=== PATIENT | male | born 1960 | race Caucasian/White ===

== ENCOUNTER → 2020-09-28 14:10 | Outpatient (CLI) | payer BC, SELFPAY ==
--- NOTE | ~2020-09-28 | US_ITS ---
EXAMINATION: US soft tissue chest DATE: 09/28/2020 15:13 INDICATION: Chest wall mass TECHNIQUE: Multiple grayscale and Doppler ultrasound images of the region of concern at the left uppe r quadrant along the margin of the ribs were obtained. COMPARISON: None FINDINGS/IMPRESSION: The palpable abnormality of concern corresponds to a shadowing likely calcified structure. The struct ure appears centered deep to the subcutaneous fat within the chest/abdominal wall and on cine images projects from deep to 3 more superficial tip, likely either the tip of a rib or possibly the xiphoid process. Could consider obtaining a radiograph with a BB marking the lesion for confirmation. Reviewed, dictated and finalized at location A.
== END ==
DX: R22.2 Localized swelling, mass and lump, trunk (principal)
CPT/HCPCS: 76604

== ENCOUNTER 2023-07-24 10:25 | Outpatient (CLI) | payer OTHER, SELFPAY ==
[2023-07-24 18:37] LABS: Hemoglobin 14.6 g/dL (14.0-18.0); Mean Corpuscular HGB Conc 31.7 g/dl (32-36); Mean Corpuscular Volume 94.5 fl (80-100); Mean Platelet Volume 11.1 fl (7.4-10.4); Platelet Count Result 211 k/mm3 (150-375); Red Blood Count 4.87 M/mm3 (4.6-6.20); Red Cell Distribution Width 12.9 % (11.5-14.5); White Blood Count 4.7 K/mm3 (4.5-10.0)
[2023-07-24 18:42] LABS: Alanine Aminotransferase 27 U/L (6-50); Albumin Level 4.4 g/dL (3.5-5.1); Alkaline Phosphatase 88 U/L (38-126); Anion Gap 7 mmol/L (4-12); Aspartate Amino Transferase 40 U/L (17-59); Bilirubin,Total 0.7 mg/dL (0.2-1.3); Blood Urea Nitrogen 19 mg/dL (9-20); Calcium 9.3 mg/dL (8.4-10.2); Carbon Dioxide 29 mmol/L (22-30); Chloride 104 mmol/L (98-107); Cholesterol 185 mg/dL (0-200); Estimated Glomerular Filt Rate > 60; Glucose 76 mg/dL (65-110); HDL Direct 55 mg/dL; Potassium 4.3 mmol/L (3.4-5.0); Sodium 140 mmol/L (137-145); Triglycerides 52 mg/dL (<150)
[2023-07-24 18:51] LABS: Appearance Urine Clear (Clear); Bilirubin Urine Negative (Negative); Blood Urine Negative (Negative); Color Urine Dark Yellow (Yellow); Glucose Urine UA Negative (Negative); Ketones Urine Negative (Negative); Leukocyte Esterase Ur Negative LEU/UL (Negative); Nitrate Urine Negative (Negative); Protein Urine Negative (Negative); Specific Grav Ur 1.014 (1.001-1.035); Urobilinogen Urine 0.2 mg/dL (<2.0)
[2023-07-24 18:54] LABS: Add Urine Microscopic? NO
[2023-07-24 19:02] LABS: LDL Cholesterol Direct 109 mg/dL
[2023-07-24 19:15] LABS: Prostate Specific Antigen 1.4 ng/mL (< OR = 4.0)
== END 2023-07-24 10:26 | disposition home or self-care (01) ==
LOC: ANHGOSHLAB 10:27
PROVIDERS: PCP Family Medicine; Visit Provider Family Medicine
DX: Z00.00 Encounter for general adult medical examination without abnormal findings (principal); Z12.5 Encounter for screening for malignant neoplasm of prostate
CPT/HCPCS: 36415; 80053; 80061; 81003; 84153; 84443; 85027

== ENCOUNTER 2024-07-28 08:07 | Outpatient (CLI) | payer OTHER, SELFPAY ==
--- OUTSIDE RECORDS SUMMARY | 2024-07-28 08:13 | XMS_ITS | Referral Summary ---
Author Organization [facility] Address [address] [place] [id number] Care Team Providers Care Data Entry Operator Name Role Phone Suzie Vigil MD Primary Care Provider Allergies No known active allergies Medications glucosamine-cho ndroitin 250-200 mg tablet Take by mouth Active fexofenadine (SASHA) 180 mg tablet Take 1 tablet (180 mg total) by mouth daily Active fluticasone propionate (FLONASE) 50 mcg/actuation nasal spray Administer 1 spray into each nostril daily Active B complex 87-qmowg-A-biot -zinc [id number] up-fa-wbe-mg tablet Take by mouth Active ALPRAZolam (XANAX) 0.5 mg tablet Bring both tablets to suite 180 day of procedure. 2 tablet 4 Active Active Problems Problem Noted Date Diagnosed Date Varicose veins of leg with pain, left 01/29/2024 Varicose veins of both lower extremities with pa in 08/03/2020 Overview (08/03/2020): Left worse than right Assessment & Plan (09/09/2023 8:55 AM CDT): Left lower extremity CEAP C3 disease. Left lower extremity reflux aquatics manager ordered, pending this he would likely benefit from a GSV ablation and stab phlebectomies. Assessment & Plan (08/12/2022 8:54 PM CDT): Minimally symptomatic. Rec more frequent use of compression socks, elevation. Discussed indications for vascular referral. Assessment & Plan (08/03/2020 10:24 AM CDT): Nearing the point the point should refer to vascular General medical exam 07/28/2019 Assessment & Plan (08/12/2022 9:30 AM CDT): - Depression screen: PHQ Screening PHQ-2 Total Score (If total score is 3 or more points, staff should administer the PHQ-9): 0 PHQ-9 Total Score: 0 - A1c: screen - Lipids: screen - AAA screening: not needed - Colon cancer: last done 10/2019 with hyperplastic polyp, due for f/u in 2029 - Prostate cancer: Benefits and risks discussed. Pt elects to be screened - Lung cancer: not needed - HIV: NR - HCV: NR - Other STI: not neededd - Influenza: rec - Td/Tdap: give today - PPSV23: not needed - PCV13: due at 65 - Shingrix: UTD - COVID: Rec bivalent booster Routine health maintenance objectives discussed including need for healthy diet and physical activity and orders placed for any outstanding screening studies as noted. Physical exam performed as above.Routine annual labs, if needed, have been ordered and will be reviewed with patient when results available. Assessment & Plan (08/06/2021 9:46 PM CDT): - Depression screen: PHQ Screening PHQ-2 Total Score (If total score is 3 or more points, staff should administer the PHQ-9): 0 - A1c: screen - Lipids: screen - AAA screening: not needed - Colon cancer: last done 10/2019 with hyperplastic polyp, due for f/u in 2029 - Prostate cancer: Benefits and risks discussed. Pt elects to be screened - Lung cancer: not needed - HIV: NR - HCV: NR - Other STI: not neededd - Influenza: rec - Td/Tdap he will check - PPSV23: give at 66 - PCV13: not needed - Shingrix: UTD - COVID: Rec booster #2 Routine health maintenance objectives discussed including need for healthy diet and physical activity and orders placed for any outstanding screening studies as noted. Physical exam performed as above.Routine annual labs, if needed, have been ordered and will be reviewed with patient when results available. 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 If no improvement, he will sched with medical certification specialist. COVID-19 07/04/2021 08/06/2021 Hyperplastic polyp of ascending colon 08/06/2020 08/12/2022 Overview (08/06/2020): 4mm removed 10/2019 Dr Sims SIG Immunizations Immunization Administration Dates Next Due Influenza, Quadrivalent, Spl it, Preservative Free, Intramuscular 12/30/2019 Influenza, Trivalent, IM (MDV) 11/26/2020 Tdap 08/12/2022 ZOSTER Recombinant 04/26/2021,12/27/2020 Social History Tobacco Use Types Packs/Day Years Used Date Smoking Tobacco: Never Smokeless Tobacco: Former Chew Quit: 07/28/1983 Tobacco Cessation:Counseling Given: Not Answered Alcohol Use Standard Drinks/Week Comments Yes 0 (1 standard drink = 0.6 oz pur e alcohol) AUDIT-C Answer Date Recorded Q1: How often do you have a drink containing alc ohol? 2-4 times a month 08/12/2022 Q2: How many drinks containi ng alcohol do you have on a typical day when you are drinking? 3 or 4 08/12/2022 Q3: How often do you have si x or more drinks on one occasion? Never 08/12/2022 PHQ-2 Answer Date Recorded PHQ-2 Total Score 0 08/12/2022 Sex and Gender Information Value Date Recorded Sex Assigned at Not on file Legal Sex Male 3:18 AM ELECTRONIC SCALE SUBASSEMBLER Gender Identity Male 09/21/2020 1:56 PM CDT Sexual Orientation Straight 09/21/2020 1: 56 PM CDT Occupation Industry Job Start Date Job End Date retired Not on file Not on file Not on file Last Filed Vital Signs Vital Sign Reading Time Taken Comments Blood Pressure 127/80 03/09/2024 10:23 AM ELECTRONIC SCALE SUBASSEMBLER Pulse 64 03/09/2024 10:23 AM ELECTRONIC SCALE SUBASSEMBLER Temperature 36.3 C (97.3 F) 08/12/2022 9:08 AM CDT Respiratory Rate - - Oxygen Saturation 100% 03/09/2024 10:23 AM ELECTRONIC SCALE SUBASSEMBLER Inhaled Oxygen Concentration - - Weight 78.5 kg (173 lb) 03/09/2024 10:23 AM ELECTRONIC SCALE SUBASSEMBLER Height 190.5 cm (6' 3) 03/09/2024 10:23 AM ELECTRONIC SCALE SUBASSEMBLER Body Mass Index 21.62 03/09/2024 10:23 AM ELECTRONIC SCALE SUBASSEMBLER Plan of Treatment Not on file Procedures Procedure Name Priority Date/Time Associated Diagnosis Comments PSA SCREEN Routine 08/12/2022 9:33 AM CDT General medical exam HM COLONOSCOPY Routine 07/28/2011 from Last 3 Months or Most Recently Relevant to Health Maintenance Results * PSA screen (08/12/2022 9:33 AM CDT) PSA, Total 0.8 0.0 - 4.0 ng/mL [facility] Blood 08/12/2022 9:33 AM CDT 08/12/2022 9:46 AM CDT Suzie Vigil MD LAB BLOOD ORDERABLES F inal Result [address] [id number] * COLONOSCOPY (07/28/2011) Colonoscopy Normal Historical Provider HEALTH MAINTENANCE Final Result from Last 3 Months or Most Recently Relevant to Health Maintenance Insurance [facility] CLAIMS COMMERCIAL GENERIC [facility] CLAIMS Care Teams Data Entry Operator Relationship Specialty Start Date End Date Suzie Vigil MD [address] [place] [address] PCP - General Internal Medicine 08/06/21
--- OUTSIDE RECORDS SUMMARY | 2024-07-28 08:13 | XMS_ITS | Clinical Summary ---
Author Organization [facility] Address [address] [place] [id number] Care Team Providers Care Photographer'S Assistant Name Role Phone Suzie Vigil MD Primary Care Provider Allergies No known active allergies Medications glucosamine-cho ndroitin 250-200 mg tablet Take by mouth Active fexofenadine (SASHA) 180 mg tablet Take 1 tablet (180 mg total) by mouth daily Active fluticasone propionate (FLONASE) 50 mcg/actuation nasal spray Administer 1 spray into each nostril daily Active B complex 36-qqmaf-Q-biot -zinc [id number] ji-wx-dhw-mg tablet Take by mouth Active ALPRAZolam (XANAX) [...] CEAP C3 disease. Left lower extremity reflux search engine optimization strategist ordered, pending this he would likely benefit [...] If no improvement, he will sched with retail loss prevention officer. COVID-19 07/04/2021 08/06/2021 Hyperplastic polyp of ascending colon 08/06/2020 08/12/2022 Overview (08/06/2020): 4mm removed 10/2019 Dr Sims SIG Immunizations Immunization Administration Dates Next Due Influenza, Quadrivalent, Spl it, Preservative Free, Intramuscular 12/30/2019 Influenza, Trivalent, IM (MDV) 11/26/2020 Tdap 08/12/2022 ZOSTER Recombinant 04/26/2021,12/27/2020 Surgical History Surgery Date Site/Laterality Comments HERNIA REPAIR Hernia repair Medical History Medical History Date Comments Covid-19 07/04/2021 Family History Medical History Relation Name Comments Alzheimer's disease Father Heart attack Maternal Grandfather Coronary artery disease Mother Pancreatic cancer Mother Heart attack Paternal Grandfather Relation Name Status Comments Father Maternal Grandfather Mother Paternal Grandfather Social History Tobacco Use Types Packs/Day Years [...] on file Legal Sex Male 3:18 AM ARTIFICIAL INSEMINATOR Gender Identity Male 09/21/2020 1:56 PM CDT Sexual Orientation Straight 09/21/2020 1: 56 PM CDT Occupation Industry Job Start Date Job End Date retired Not on file Not on file Not on file Obstetrics History Last Filed Vital Signs Vital Sign Reading Time Taken Comments Blood Pressure 127/80 03/09/2024 10:23 AM ARTIFICIAL INSEMINATOR Pulse 64 03/09/2024 10:23 AM ARTIFICIAL INSEMINATOR Temperature 36.3 C (97.3 F) 08/12/2022 9:08 AM CDT Respiratory Rate - - Oxygen Saturation 100% 03/09/2024 10:23 AM ARTIFICIAL INSEMINATOR Inhaled Oxygen Concentration - - Weight 78.5 kg (173 lb) 03/09/2024 10:23 AM ARTIFICIAL INSEMINATOR Height 190.5 cm (6' 3) 03/09/2024 10:23 AM ARTIFICIAL INSEMINATOR Body Mass Index 21.62 03/09/2024 10:23 AM ARTIFICIAL INSEMINATOR Plan of Treatment Health Maintenance Due Date Last Done Comments Hepatitis C Screening 1960 Hepatitis B Screening 05/01/1979 Colon Cancer Screening-Colonoscopy 07/27/2021 07/28/2011 Depression Screening 08/13/2023 08/12/2022, 08/12/2022, 08/06/2021, Additional history exists Regular Well Visit/Exam 18-64 08/13/2023 08/12/2022, 08/06/2021, 08/03/2020, Additional history exists Covid-19 Vaccine ( season) 2023 01/19/2021, 05/21/2020, 2020 Prostate Cancer Screening-PSA 08/12/2024 08/12/2022, 08/06/2021, 08/03/2020, Additional history exists DTaP/Tdap/Td Vaccine (2 - Td or Tdap) 08/12/2032 08/12/2022 Colon Cancer Screening-CT Colonography Discontinued 07/28/2011 Colon Cancer Screening-DNA Stool Discontinued 07/28/2011 Colon Cancer Screening-FIT Discontinued 07/28/2011 Colon Cancer Screening-Sigmoidoscopy Discontinued 07/28/2011 Zoster Vaccine Completed 04/26/2021, 12/27/2020 Influenza Vaccine Completed 11/26/2023, , 12/30/2019 Pneumococcal vaccine <65 Aged Out No longer eligible based on patient's age to complete this topic Procedures Procedure Name Priority Date/Time Associated Diagnosis Comments PSA SCREEN Routine 08/12/2022 9:33 AM CDT General medical exam HM COLONOSCOPY Routine 07/28/2011 from Last 3 Months or Most Recently Relevant to Health Maintenance Results * PSA screen (08/12/2022 9:33 AM CDT) PSA, Total 0.8 0.0 - 4.0 ng/mL [facility] Blood 08/12/2022 9:33 AM CDT 08/12/2022 9:46 AM CDT Suzie Vigil MD LAB BLOOD ORDERABLES F inal Result Performing Organization Address City/State/[facility] Co de Phone Number [facility] [address] [place] [address] * HM COLONOSCOPY (07/28/2011) Colonoscopy Normal Mildred Provider HEALTH MAINTENANCE Final Result from Last 3 Months or Most Recently Relevant to Health [place] [address] [facility] CLAIMS COMMERCIAL GENERIC [facility] CLAIMS Care Teams Photographer'S Assistant Relationship Specialty Start Date End Date Suzie Vigil MD [address] [place] [address] PCP - General Internal Medicine 08/06/21
[2024-07-28 19:38] LABS: Hematocrit 46.8 % (42.0-52.0); Hemoglobin 14.7 g/dL (14.0-18.0); Mean Corpuscular HGB Conc 31.4 g/dl (32-36); Mean Corpuscular Hemoglobin 29.9 pg (26-34); Mean Corpuscular Volume 95.3 fl (80-100); Platelet Count Result 195 k/mm3 (150-375); Red Blood Count 4.91 M/mm3 (4.6-6.20); Red Cell Distribution Width 13.4 % (11.5-14.5); White Blood Count 4.5 K/mm3 (4.5-10.0)
[2024-07-28 20:10] LABS: Add Urine Microscopic? NO; Appearance Urine Clear (Clear); Bilirubin Urine Negative (Negative); Blood Urine Negative (Negative); Color Urine Yellow (Yellow); Glucose Urine UA Negative (Negative); Ketones Urine Negative (Negative); Leukocyte Esterase Ur Negative LEU/UL (Negative); Nitrate Urine Negative (Negative); Protein Urine Negative (Negative); Specific Grav Ur 1.018 (1.001-1.035); Urobilinogen Urine 0.2 mg/dL (<2.0)
[2024-07-28 21:03] LABS: Alanine Aminotransferase 27 U/L (6-50); Albumin Level 4.4 g/dL (3.5-5.1); Alkaline Phosphatase 90 U/L (38-126); Anion Gap 8 mmol/L (4-12); Aspartate Amino Transferase 47 U/L (17-59); Bilirubin,Total 0.9 mg/dL (0.2-1.3); Blood Urea Nitrogen 16 mg/dL (9-20); Calcium 9.4 mg/dL (8.4-10.2); Carbon Dioxide 29 mmol/L (22-30); Chloride 103 mmol/L (98-107); Cholesterol 192 mg/dL (0-200); Estimated Glomerular Filt Rate > 60; Glucose 66 mg/dL (65-110); HDL Direct 61 mg/dL; Potassium 4.1 mmol/L (3.4-5.0); Sodium 140 mmol/L (137-145); Total Protein 7.4 g/dL (6.3-8.2); Triglycerides 50 mg/dL (<150)
[2024-07-28 21:15] LABS: LDL Cholesterol Direct 100 mg/dL
[2024-07-28 21:35] LABS: Prostate Specific Antigen 1.5 ng/mL (< OR = 4.0)
== END 2024-07-28 08:08 | disposition home or self-care (01) ==
LOC: ANHGOSHLAB 08:08
PROVIDERS: PCP Family Medicine; Visit Provider Family Medicine
DX: Z00.00 Encounter for general adult medical examination without abnormal findings (principal); E78.5 Hyperlipidemia, unspecified; R53.83 Other fatigue; R35.1 Nocturia
CPT/HCPCS: 36415; 80053; 80061; 81003; 84153; 84443; 85027

== ENCOUNTER 2024-08-09 09:35 | Outpatient (CLI) | payer OTHER, SELFPAY ==
--- NOTE | ~2024-08-09 | XR_ITS ---
EXAM/ PROCEDURE: XR foot LT min 3V - 08/09/2024 10:00 CDT HISTORY: 64 years old Male with M79.672 - Pain in left foot COMPARISON: None available TECHNIQUE: Three view(s) FINDINGS/ IMPRESSION: There are no fractures or dislocations.Joint space narrowing, subchondral sclerosis, subchondral cyst formation and osteophyte formation, compatible with mild osteoarthritis. Reviewed, dictated and finalized at location A.
== END 2024-08-09 09:36 | disposition home or self-care (01) ==
LOC: MICIMG 09:36
PROVIDERS: PCP Family Medicine; Visit Provider Family Medicine
DX: M79.672 Pain in left foot (principal)
CPT/HCPCS: 73630